=== PATIENT | female | born 1975 | race Caucasian/White ===

== ENCOUNTER 2021-03-28 03:09 | Emergency (ER) | payer OTHER ==
[~2021-03-28 03:09] MED LIST: ASPIRIN81 MG PO; IRON159 MG PO; MELATONIN10 MG PO; METFORMIN HCL500 MG PO; ULTRAM50 MG PO; VITAMIN D35000 UNI1 PO; WELLBUTRIN XL150 MG PO; XARELTO15 MG PO
[2021-03-28 03:34] LABS: BASOPHIL 0.7 % (0-2); EOSINOPHIL 0.9 % (0-5); HCT 41.1 % (37.0-47.0); HGB 13.5 g/dl (12.5-16.0); LYMPHOCYTE 36.2 % (15-48); MCH 31.5 pg (25.0-31.0); MCHC 32.8 g/dL (32.0-36.0); MCV 95.8 fL (78.0-100.0); MPV 9.4 fL (6.0-9.5); NRBC 0; PLT 396 K/uL (150-400); RBC 4.29 M/uL (4.20-5.40); RDW 13.1 % (11.5-14.0); WBC 9.1 K/uL (4.0-10.5)
[2021-03-28 03:40] LABS: INR 1.12 (0.9-1.2); PROTHROMBIN TIME 13.7 SECONDS (11.4-13.6); PTT 29.2 SECONDS (22.2-34.7)
[2021-03-28 03:47] LABS: ALBUMIN 3.5 g/dL (3.4-5.0); BILIRUBIN - TOTAL 0.4 mg/dL (0.2-1.0); BUN/CREAT RATIO (CALC) 13.6 RATIO; CREATININE 0.88 mg/dL (0.51-0.95); GLOBULIN (CALCULATION) 3.4 g/dL; POTASSIUM 3.6 mmol/L (3.5-5.1); TOTAL PROTEIN 6.9 g/dL (6.4-8.2)
[2021-03-28 03:55] LABS: PRO-BNP 77 pg/mL (<125)
[2021-03-28] MEDS ORDERED: AZITHROMYCIN250 MG PO (07:45)
[2021-03-28] MEDS ORDERED: MEDROL 4MG DOSEP4 MG PO (07:45)
== END 2021-03-28 08:05 | disposition home or self-care (01) ==
LOC: FER 03:09
PROVIDERS: Student in an Organized Health Care Education/Training Program
DX: J12.9 Viral pneumonia, unspecified (principal); Z20.822 Contact with and (suspected) exposure to COVID-19; Z86.718 Personal history of other venous thrombosis and embolism; Z86.711 Personal history of pulmonary embolism
CPT/HCPCS: 36415; 71275; 80053; 83880; 84484; 85025; 85610; 85730; 93005; 93971; J1100; J2270; J2405; Q9967; U0002